=== PATIENT | female | born 1990 | race Caucasian/White ===

== ENCOUNTER → 2016-10-03 | Outpatient (CLI) | payer MEDICAID | LOC: FIMAGING 09:48 | PROVIDERS: ATTEND Family Medicine | DX: Z03.89 Encounter for observation for other suspected diseases and conditions ruled out (principal) ==

== ENCOUNTER 2017-12-25 13:36 | Emergency (ER) | payer MEDICAID, OTHER ==
--- NOTE | 2017-12-25 15:31 | EDPHY ---
H & P Stated Complaint: anxiety Time Seen by Provider: 12/25/17 14:44 - Medical/Surgical History Hx Asthma: No Hx Chronic Respiratory Disease: No Hx Diabetes: No Hx Cardiac Disease: No Hx Renal Disease: No Hx Cirrhosis: No Hx Alcoholism: No Hx HIV/AIDS: No Hx Splenectomy or Spleen Trauma: No Other PMH: PE lower right lobe, cholecystectomy, panic attacks, endometriosis, c -section x 1, 5 intra uterine shunt placement - Social History Smoking Status: Current every day smoker Constitutional: Initial Vital Signs Temperature (C) 36.8 C 12/25/17 13:37 Heart Rate 58 L 12/25/17 13:37 Respiratory Rate 18 12/25/17 13:37 O2 Sat (%) 99 12/25/17 13:37 O2 Delivery Mode Room Air Allergies/Adverse Reactions: codeine Allergy (Unknown, Verified 12/25/17 13:57) hydromorphone HCl [From Dilaudid] Allergy (Unknown, Verified 12/25/17 13:57) diphenhydramine HCl [From Benadryl] Allergy (Verified 12/25/17 13:57) metoclopramide HCl [From Reglan] Allergy (Verified 12/25/17 13:57) Home Medications: Medication Instructions Recorded Prozac 40 mg 10/10/15 Medical Decision Making ED Course/Re-evaluation: CHIEF COMPLAINT: Near-syncope HISTORY OF PRESENT ILLNESS: This patient is a 27 year old female who presents following a near-syncopal event this afternoon. She was driving to work and smoking a cigarette, and felt as though her breathing was labored. She put her cigarette out and continued to feel unwell despite tried taking slow, deep breaths. She began to feel nauseous and hot, then lightheaded as if she might pass out so she pulled over. This provoked a panic attack and she called 911. She denies personal or family history of syncopal events, arrhythmias. She denies , but is not sure if there is a chance of this. She additionally notes that she has not eaten today. No fever, chest pain, vomiting, diarrhea, urinary complaints, or other associated symptoms. REVIEW OF SYSTEMS: A comprehensive 10 system review of systems is otherwise negative aside from elements mentioned in the history of present illness and medical decision making. PHYSICAL EXAM: HR, BP, O2 Sat, RR. Temp noted General Appearance: Alert, well hydrated, appropriate, and non-toxic appearing. Head: Atraumatic without scalp tenderness or obvious injury Eyes: Pupils equal, round, reactive to light and accommodation, EOMI, no trauma , no injection. Ears: Clear bilaterally, no perforation, normal landmarks Nose: Atraumatic, no rhinorrhea, clear. Throat: There is no erythema or exudates, no lesions, normal tonsils, mucus membranes moist. Neck: Supple, 2+ carotid upstroke, nontender, no lymphadenopathy. Respiratory: No retractions, no distress, no wheezes, and no accessory muscle use. Lungs are clear to auscultation bilaterally. Cardiovascular: Regular rate and rhythm, no murmurs, rubs, or gallops. Bilateral carotid, radial, dorsalis pedis, and posterior tibial pulses intact. Good capillary refill all extremities. Gastrointestinal: Abdomen is soft, nontender, non-distended, no masses, no rebound, no guarding, no peritoneal signs. Musculoskeletal: Normal active ROM of all extremities, atraumatic. Neurological: Alert, appropriate, and interactive. The patient has normal DTRs and non-focal cranial nerves, motor, sensory, and cerebellar exam. Skin: No rashes, good turgor, no nodules on palpation. Past medical history: PE lower right lobe, panic attacks, endometriosis. Past surgical history: Cholecystectomy. Cesarian section. Intrauterine shunt placement. Family history: Noncontributory Social history: Employed. . Friend at bedside. DIAGNOSTICS/PROCEDURES/CRITICAL CARE TIME: The 12 lead EKG was interpreted by myself. Sinus rhythm, normal QTc. See hard copy and/or "tracemaster" electronic copy for interpretation. DIFFERENTIAL DIAGNOSIS: The differential diagnosis for the patient's near-syncope included but was not limited to vasovagal syncope, arrhythmia, dehydration, cardiogenic causes, neurogenic causes, and blood loss. MEDICAL DECISION [id number] y/o female presents following a near-syncopal episode this afternoon. Plan for EKG, labs including CBC, chemistries, troponin, BHCG. Plan for d-dimer as patient has history of prior pulmonary embolus. Labs unremarkable. D-dimer negative. BHCG negative. The patient's EKG shows a normal sinus rhythm with normal QT interval. Workup is unremarkable today. 16:33 Reassessed. Discussed results with patient. Plan to discharge home in good condition. Follow up and return precautions discussed. She is comfortable with this plan. - Data Points Laboratory Results: Laboratory Results 12/25/17 13:30 12/25/17 13:30 12/25/17 12/25/17 12/25/17 13:54 13:30 13:30 WBC RBC Hgb Hct MCV MCH MCHC RDW Plt Count MPV Neut % (Auto) Lymph % (Auto) [place] % (Auto) Eos % (Auto) Baso % (Auto) Nucleat RBC Rel Count Absolute Neuts (auto) Absolute Lymphs (auto) Absolute Monos (auto) Absolute Eos (auto) Absolute Basos (auto) Absolute Nucleated RBC Immature Gran % Immature Gran # D-Dimer 0.28 ug/mLFEU ug/mLFEU (0.00-0.50) Sodium 138 mEq/L mEq/L (135-145) Potassium 4.4 mEq/L mEq/L (3.3-5.0) Chloride 104 mEq/L mEq/L (97-110) Carbon Dioxide 22 mEq/l mEq/l (22-31) Anion Gap 12 mEq/L mEq/L (8-16) BUN 10 mg/dL mg/dL (7-23) Creatinine 0.7 mg/dL mg/dL (0.6-1.0) Estimated GFR > 60 Glucose 98 mg/dL mg/dL (70-100) Calcium 11.0 mg/dL H mg/dL (8.5-10.4) Phosphorus 1.8 mg/dL L mg/dL (2.5-4.5) Beta HCG, Qual NEGATIVE 12/25/17 13:30 WBC 9.92 10^3/uL H 10^3/uL (3.80-9.50) RBC 5.37 10^6/uL H 10^6/uL (4.18-5.33) Hgb 15.6 g/dL g/dL (12.6-16.3) Hct 45.1 % % (38.0-47.0) MCV 84.0 fL fL (81.5-99.8) MCH 29.1 pg pg (27.9-34.1) MCHC 34.6 g/dL g/dL (32.4-36.7) RDW 12.4 % % (11.5-15.2) Plt Count 488 10^3/uL H 10^3/uL (150-400) MPV 10.6 fL fL (8.7-11.7) Neut % (Auto) 62.0 % % (39.3-74.2) Lymph % (Auto) 28.5 % % (15.0-45.0) [place] % (Auto) 7.2 % % (4.5-13.0) Eos % (Auto) 1.7 % % (0.6-7.6) Baso % (Auto) 0.4 % % (0.3-1.7) Nucleat RBC Rel Count 0.0 % % (0.0-0.2) Absolute Neuts (auto) 6.15 10^3/uL 10^3/uL (1.70-6.50) Absolute Lymphs (auto) 2.83 10^3/uL 10^3/uL (1.00-3.00) Absolute Monos (auto) 0.71 10^3/uL 10^3/uL (0.30-0.80) Absolute Eos (auto) 0.17 10^3/uL 10^3/uL (0.03-0.40) Absolute Basos (auto) 0.04 10^3/uL 10^3/uL (0.02-0.10) Absolute Nucleated RBC 0.00 10^3/uL 10^3/uL (0-0.01) Immature Gran % 0.2 % % (0.0-1.1) Immature Gran # 0.02 10^3/uL 10^3/uL (0.00-0.10) D-Dimer Sodium Potassium Chloride Carbon Dioxide Anion Gap BUN Creatinine Estimated GFR Glucose Calcium Phosphorus Beta HCG, Qual Medications Given: Discontinued Medications Sodium Chloride (Ns) 1,000 mls @ 0 mls/hr IV EDNOW ONE; Wide Open PRN Reason: Protocol Stop: 12/25/17 15:39 Last Admin: 12/25/17 15:51 Dose: 1,000 mls Departure - Departure Disposition: Home, Routine, Self-Care Clinical Impression: Near syncope Condition: Good Instructions: Near Syncope (ED) Additional Instructions: 1. Follow up with cardiology for further evaluation. 2. Follow up with your primary care provider. 3. Return for fever, chest pain, shortness of breath, or other worsening of condition. 4. Stay well hydrated. Referrals: Fran Doe MD [Medical Doctor] - As per Instructions Jeri Fritz MD [[facility] – [place], [place] Primary Care Provider] - As per Instructions Report Scribed for: Reagan Laureano Report Scribed by: Argentina Segura Date of Report: 12/25/17 Time of Report: 16:52
[2017-12-25] MEDS ORDERED: NS 1,000 ML IV ONE (15:38)
[2017-12-25 15:47] LABS: PLATELET COUNT 488 10^3/uL (150-400)
[2017-12-25 16:42] VITALS: BP 101/53
--- NOTE | 2017-12-25 18:43 | CPEKG ---
Test Reason : OPEN Blood Pressure : / mmHG Vent. Rate : 058 BPM Atrial Rate : 057 BPM P-R Int : 162 ms QRS Dur : 080 ms QT Int : 405 ms P-R-T Axes : 034 055 021 degrees QTc Int : 398 ms Sinus rhythm Confirmed by Reagan Laureano ([id number]) on 12/25/2017 6:42:32 PM Referred By: Confirmed By:Reagan Laureano
== END 2017-12-25 16:42 | disposition home or self-care (01) ==
LOC: EDUNIT#
DX: R55 Syncope and collapse (principal); F41.9 Anxiety disorder, unspecified; F17.200 Nicotine dependence, unspecified, uncomplicated